=== PATIENT | female | born 1980 | race Caucasian/White ===

== ENCOUNTER 2016-10-03 05:56 | Emergency (ER) | payer SELFPAY ==
[~2016-10-03] VITALS: Ht 162.6 cm; Wt 65.0 kg
[2016-10-03 05:57] VITALS: BP 120/74
== END 2016-10-03 11:33 | disposition left against medical advice (07) ==
LOC: ER 05:56
DX: M79.604 Pain in right leg (principal); Z53.21 Procedure and treatment not carried out due to patient leaving prior to being seen by health care provider